=== PATIENT | female | born 1960 | race American Indian/Alaskan Native ===

== ENCOUNTER 2016-03-05 11:11 | Outpatient (CLI) | payer MEDICAID ==
--- NOTE | 2016-03-05 12:00 | Mammography Report ---
BILATERAL MAMMOGRAM: No previous studies available. CAD study utilized. FINDINGS: Predominance of adipose tissue bilaterally. Benign calcifications bilaterally. Focal asymmetry subareolar area right breast. No microcalcification. Benign axillary nodes. Benign intramammary nodes. IMPRESSION: Focal asymmetry subareolar area right breast. Comparison with previous studies is recommended. If previous studies are not available, spot mag and if necessary sonographic examination advised. BI-RADS CATEGORY: 0 = Needs additional imaging evaluation ACR BI-RADS MAMMOGRAPHIC CODES: 0 = Needs additional imaging evaluation; 1 = Negative; 2 = Benign; 3 = Probably benign; 4 = Suspicious; 5 = Malignant; 6 = Known biopsy-proven malignancy COMMENT: 1. Dense breast tissue, i.e., adenosis, fibrocystic changes, etc., may obscure an underlying neoplasm. 2. Approximately 10% of cancers are not detected with mammography. 3. A negative mammography report should not delay biopsy if a clinically suspicious mass is present. COMMENT: Patient follow-up letters are generated in [employer].
== END 2016-03-05 11:12 | disposition home or self-care (01) ==
LOC: MAMMO 11:11
PROVIDERS: ATTEND Nurse Practitioner
DX: Z12.31 Encounter for screening mammogram for malignant neoplasm of breast (principal)
CPT/HCPCS: 77067; G0202

== ENCOUNTER 2016-09-20 20:46 | Emergency (ER) | payer MEDICAID ==
[2016-09-20 21:49] VITALS: BP 122/80
== END 2016-09-21 00:55 | disposition left against medical advice (07) ==
LOC: ED 20:46
DX: J02.9 Acute pharyngitis, unspecified (principal); Z53.21 Procedure and treatment not carried out due to patient leaving prior to being seen by health care provider
CPT/HCPCS: 87116; 87430

== ENCOUNTER 2016-09-21 21:00 | Emergency (ER) | payer MEDICAID ==
--- NOTE | 2016-09-22 04:12 | Emergency Department Report ---
HPI - General Chief Complaint: Sore Throat Time Seen by Provider: 09/22/16 03:45 - HPI HPI: Patient is a 56-year-old female who presents to ED complaining of throat pain 3 days. Patient describes pain as burning in nature, 8 out of 10 intensity, nonradiating, localized to his throat. Admits pain with swallowing and eating. Patient also states that her tongue is itchy and burning. Patient denies nausea/vomiting/abdominal pain/shortness of breath/chest pain/ headache. ED Past Medical Hx - Past Medical History Previous Medical History?: Yes Hx Hypertension: Yes Hx Psychiatric Treatment: Yes (Anxiety) Additional medical history: high cholesterol - Surgical History Past Surgical History?: Yes Additional Surgical History: c section x1 left thumb surgery - Social History Smoking Status: Current Every Day Smoker Substance Use Type: None - Medications Home Medications: Home Medications Medication Instructions Recorded Confirmed Last Taken Type Acetaminophen [Acetaminophen 8 650 mg PO TID #30 tablet.er 09/22/16 Unknown Rx Hour] Cetirizine HCl [ZyrTEC] 10 mg PO DAILY #30 tab.chew 09/22/16 Unknown Rx Famotidine [Pepcid] 20 mg PO BID #30 tablet 09/22/16 Unknown Rx ED Review of Systems ROS: Stated complaint: SORE THROAT Other details as noted in HPI Constitutional: denies: chills, fever Eyes: denies: eye pain, eye discharge, vision change ENT: throat pain. denies: ear pain Respiratory: denies: cough, shortness of breath, wheezing Cardiovascular: denies: chest pain, palpitations Endocrine: no symptoms reported Gastrointestinal: denies: abdominal pain, nausea, diarrhea Genitourinary: denies: urgency, dysuria, discharge Musculoskeletal: denies: back pain, joint swelling, arthralgia Skin: denies: rash, lesions Neurological: denies: headache, weakness, numbness, paresthesias, confusion Psychiatric: denies: anxiety, depression Hematological/Lymphatic: denies: easy bleeding, easy bruising Physical Exam - Physical Exam Vital Signs: Vital Signs 09/21/16 09/21/16 21:13 21:32 Temperature 99.3 F 99.3 F Pulse Rate 92 H 92 H Respiratory 18 18 Rate Blood Pressure 138/85 Blood Pressure 138/85 [Right] O2 Sat by Pulse 98 98 Oximetry Physical Exam: GENERAL: Alert and oriented x3, no apparent distress, Normal Gait, atraumatic. HEAD: Head is normocephalic and a-traumatic. EYES: Extra ocular muscles are intact. Pupils are equal, round, and reactive to light and accommodation. EARS: symetrical, atraumatic, non tender, ear canal clear and moderate cerumen, tympanic membrance non inflamed. gross auditory nml bilaterally. NOSE: Nose symetrical, Nontender,Nares appeared normal. MOUTH:Mouth is well hydrated and without lesions. Tonsils nonerythematous or swollen, Uvula midline, Tongue not elevated. Mucous membranes are moist. Posterior pharynx clear, no exudate or lesions. Patent airways. NECK: Supple. Non edematous, No carotid bruits. mild lymphadenopathy, no thyromegaly. No C-spine tenderness LUNGS: Symetrical with respiration, No wheezing, no rales or crackles, CTAB. HEART: S1, S2 present, regular rate and rhythm without murmur, no rubs, no gallops. Non tender to palpation PSYCHIATRIC: Mood is congruent with affect, denies suicidal or homicidal ideations. SKIN: Warm and dry, No lesions, No ulceration or induration present. ED Course Vital Signs 09/21/16 09/21/16 21:13 21:32 Temperature 99.3 F 99.3 F Pulse Rate 92 H 92 H Respiratory 18 18 Rate Blood Pressure 138/85 Blood Pressure 138/85 [Right] O2 Sat by Pulse 98 98 Oximetry ED Medical Decision Making - Medical Decision Making 56-year-old female presents with pharyngitis. ED course: Rapid strep tests ordered rapid strep test negative Patient received 1 dose of Tylenol, 60mg milligrams of prednisone Fever responsive to one dose of Tylenol. Vital signs stable patient is in no acute or respiratory distress. Discussed findings with patient about the negative strep. pt to be sent home on Motrin. Discussed the patient to follow up with back order clerk due to swollen thyroid gland. Discussed with patient follow-up with primary care physician. Patient verbally states he understands and will comply to follow-up. Critical care attestation.: If time is entered above; I have spent that time in minutes in the direct care of this critically ill patient, excluding procedure time. ED Disposition Clinical Impression: Pharyngitis Qualifiers: Pharyngitis/tonsillitis etiology: unspecified etiology Qualified Code(s): J02.9 - Acute pharyngitis, unspecified Disposition: TO HOME OR SELFCARE Is pt being admited?: No Does the pt Need Aspirin: No Condition: Stable Instructions: Pharyngitis (ED), Thyroid Goiter (ED) Prescriptions: Acetaminophen [Acetaminophen 8 Hour] 650 mg PO TID #30 tablet.er Cetirizine HCl [ZyrTEC] 10 mg PO DAILY #30 tab.chew Famotidine [Pepcid] 20 mg PO BID #30 tablet Referrals: PRIMARY CARE, [Primary Care Provider] - 3-5 Days NATALYA BRYANT FNP [Advanced Practice Nurse] - 3-5 Days LEON PRECIADO MD [Staff Physician] - 3-5 Days ANNALISA GREEN MD [Staff Physician] - 3-5 Days MICHAELA DEGROOT MD [Staff Physician] - 3-5 Days Forms: Accompanied Note, Work/School Release Form(ED) Time of Disposition: 04:30
[2016-09-22] MEDS ORDERED: DELTASONE PO ONE (04:23)
[2016-09-22] MEDS ORDERED: TYLENOL PO ONE (04:26)
[2016-09-22] MEDS: BENADRYL PO ONE ×2 (04:40→04:56)
[2016-09-22 05:04] VITALS: BP 140/78
== END 2016-09-22 05:04 | disposition home or self-care (01) ==
LOC: ED 21:00
DX: J02.9 Acute pharyngitis, unspecified (principal); I10 Essential (primary) hypertension; E78.00 Pure hypercholesterolemia, unspecified; F17.210 Nicotine dependence, cigarettes, uncomplicated
CPT/HCPCS: 87116; 87430; 99282; J7512; Q0163

== ENCOUNTER 2017-03-07 10:59 | Outpatient (CLI) | payer OTHER ==
--- NOTE | 2017-03-07 13:26 | Mammography Report ---
BILATERAL DIGITAL SCREENING MAMMOGRAM with CAD: 03/07/17 10:59:00 CLINICAL: Routine screening. COMPARISON:03/05/16 FINDINGS: The breasts are almost entirely fatty.A few stable right benign intraparenchymal lymph nodes. Bilateral benign calcifications. No mass, architectural distortion or suspicious calcifications. IMPRESSION: No mammographic evidence of malignancy. BI-RADS CATEGORY: 2 - - Benign RECOMMENDATION: Routine mammographic screening in one year. COMMENT: Patient follow-up letters are generated by our [employer] application.
== END 2017-03-07 11:00 | disposition home or self-care (01) ==
LOC: MAMMO 10:59
PROVIDERS: ATTEND Family Medicine
DX: Z12.31 Encounter for screening mammogram for malignant neoplasm of breast (principal)
CPT/HCPCS: 77067

== ENCOUNTER 2018-03-13 12:51 | Outpatient (CLI) | payer MEDICAID ==
--- NOTE | 2018-03-13 13:59 | Mammography Report ---
BILATERAL MAMMOGRAM: FINDINGS: There are scattered fibroglandular densities (approximately 25%-50% glandular). No mass, distortion, suspicious calcification, or skin change is seen. No interval change compared to prior examination in February 2017. CAD was utilized. IMPRESSION: Negative mammogram. There is no mammographic evidence of malignancy. RECOMMENDATION: Follow-up per ACS guidelines. BI-RADS CATEGORY: 1 = Negative ACR BI-RADS MAMMOGRAPHIC CODES: 0 = Needs additional imaging evaluation; 1 = Negative; 2 = Benign; 3 = Probably benign; 4 = Suspicious; 5 = Malignant; 6 = Known biopsy-proven malignancy COMMENT: 1. Dense breast tissue, i.e., adenosis, fibrocystic changes, etc., may obscure an underlying neoplasm. 2. Approximately 10% of cancers are not detected with mammography. 3. A negative mammography report should not delay biopsy if a clinically suspicious mass is present. COMMENT: Patient follow-up letters are generated in [employer].
== END 2018-03-13 12:52 | disposition home or self-care (01) ==
LOC: MAMMO 12:51
PROVIDERS: ATTEND Family Medicine
DX: Z12.31 Encounter for screening mammogram for malignant neoplasm of breast (principal); I10 Essential (primary) hypertension; Z87.891 Personal history of nicotine dependence
CPT/HCPCS: 77067

== ENCOUNTER 2019-12-06 17:27 | Emergency (ER) | payer SELFPAY ==
[2019-12-06 17:34] VITALS: BP 145/83
--- NOTE | 2019-12-06 18:15 | Emergency Department Report ---
ED ENT HPI - General Chief complaint: Dental/Oral Stated complaint: MOUTH PAIN Time Seen by Provider: 12/06/19 18:03 Source: patient Mode of arrival: Ambulatory Limitations: No Limitations - History of Present Illness Initial comments: Patient is a 59-year-old female presents emergency room with complaints of mouth pain that began a week ago. She states that she has white plaques on her tongue. She states that she believes she has oral thrush. She states that she attempted to use home remedies such as baking soda, lemon juice, peroxide, salt water gargles. She denies ever having the past. She denies any tongue or mouth swelling, fever, nausea, vomiting, diarrhea, difficulty swallowing. She has a past medical history of COPD, hypertension, hyperlipidemia. She has an allergy to sulfa. - Related Data Previous Rx's Medication Instructions Recorded Last Taken Type Acetaminophen [Acetaminophen 8 650 mg PO TID #30 tablet.er 09/22/16 Unknown Rx Hour] Cetirizine HCl [ZyrTEC] 10 mg PO DAILY #30 tab.chew 09/22/16 Unknown Rx Famotidine [Pepcid] 20 mg PO BID #30 tablet 09/22/16 Unknown Rx Fluconazole (Nf) [Diflucan TAB] 150 mg PO ONCE 1 Days #1 tablet 12/06/19 Unknown Rx Nystatin [Nystatin SUSP] 10 ml PO TID 10 Days #1 bottle 12/06/19 Unknown Rx Allergies Allergy/AdvReac Type Severity Reaction Status Date / Time Sulfa (Sulfonamide Allergy Nausea Verified 12/06/19 17:28 Antibiotics) ED Dental HPI - General Chief complaint: Dental/Oral Stated complaint: MOUTH PAIN Time Seen by Provider: 12/06/19 18:03 Source: patient Mode of arrival: Ambulatory Limitations: No Limitations - Related Data Previous Rx's Medication Instructions Recorded Last Taken Type Acetaminophen [Acetaminophen 8 650 mg PO TID #30 tablet.er 09/22/16 Unknown Rx Hour] Cetirizine HCl [ZyrTEC] 10 mg PO DAILY #30 tab.chew 09/22/16 Unknown Rx Famotidine [Pepcid] 20 mg PO BID #30 tablet 09/22/16 Unknown Rx Fluconazole (Nf) [Diflucan TAB] 150 mg PO ONCE 1 Days #1 tablet 12/06/19 Unknown Rx Nystatin [Nystatin SUSP] 10 ml PO TID 10 Days #1 bottle 12/06/19 Unknown Rx Allergies Allergy/AdvReac Type Severity Reaction Status Date / Time Sulfa (Sulfonamide Allergy Nausea Verified 12/06/19 17:28 Antibiotics) ED Review of Systems ROS: Stated complaint: MOUTH PAIN Other details as noted in HPI Comment: All other systems reviewed and negative ED Past Medical Hx - Past Medical History Hx Hypertension: Yes Hx Psychiatric Treatment: Yes (Anxiety) Additional medical history: high cholesterol - Surgical History Additional Surgical History: c section x1 left thumb surgery - Social History Smoking Status: Current Every Day Smoker Substance Use Type: None - Medications Home Medications: Home Medications Medication Instructions Recorded Confirmed Last Taken Type Acetaminophen [Acetaminophen 8 650 mg PO TID #30 tablet.er 09/22/16 Unknown Rx Hour] Cetirizine HCl [ZyrTEC] 10 mg PO DAILY #30 tab.chew 09/22/16 Unknown Rx Famotidine [Pepcid] 20 mg PO BID #30 tablet 09/22/16 Unknown Rx Fluconazole (Nf) [Diflucan TAB] 150 mg PO ONCE 1 Days #1 tablet 12/06/19 Unknown Rx Nystatin [Nystatin SUSP] 10 ml PO TID 10 Days #1 bottle 12/06/19 Unknown Rx ED Physical Exam - General Limitations: No Limitations General appearance: alert, in no apparent distress - Head Head exam: Present: atraumatic, normocephalic - Eye Eye exam: Present: normal appearance - ENT ENT exam: Present: mucous membranes moist, other (thich white plaque present to the tongue) - Respiratory Respiratory exam: Present: normal lung sounds bilaterally. Absent: respiratory distress, wheezes, rales, rhonchi, stridor, chest wall tenderness, accessory muscle use, decreased breath sounds, prolonged expiratory - Cardiovascular Cardiovascular Exam: Present: regular rate, normal rhythm, normal heart sounds. Absent: systolic murmur, diastolic murmur, rubs, gallop - Neurological Exam Neurological exam: Present: alert, oriented X3 - Psychiatric Psychiatric exam: Present: normal affect, normal mood - Skin Skin exam: Present: warm, dry, intact ED Course Vital Signs 12/06/19 17:31 Temperature 99.0 F Pulse Rate 93 H Respiratory 18 Rate Blood Pressure 145/83 O2 Sat by Pulse 94 Oximetry ED Medical Decision Making - Medical Decision Making Patient is a 59-year-old female presents emergency room with complaints of mouth pain that began a week ago. She states that she has white plaques on her tongue. She states that she believes she has oral thrush. She states that she attempted to use home remedies such as baking soda, lemon juice, peroxide, salt water gargles. She denies ever having the past. She denies any tongue or mouth swelling, fever, nausea, vomiting, diarrhea, difficulty swallowing. She has a past medical history of COPD, hypertension, hyperlipidemia. She has an allergy to sulfa. VSS. on exam: thich white plaque present to the tongue. Examination could most likely be due to oral candidiasis. Given that patient is a current every day tobacco smoker, discussed the importance of oral cancer screening as an outpatient, she verbalized understanding. Patient given prescription for fluconazole and nystatin. Advised patient Please use medication as prescribed. Please follow-up with your primary care doctor. Please discuss with your primary care doctor about oral cancer screening since you are a tobacco user. Return to emergency room for any new or worsening symptoms. Critical care attestation.: If time is entered above; I have spent that time in minutes in the direct care of this critically ill patient, excluding procedure time. ED Disposition Clinical Impression: Oral candidiasis Disposition: DC-01 TO HOME OR SELFCARE Is pt being admited?: No Does the pt Need Aspirin: No Condition: Stable Instructions: Oral Candidiasis (ED) Additional Instructions: Please use medication as prescribed. Please follow-up with your primary care doctor. Please discuss with your primary care doctor about oral cancer screening since you are a tobacco user. Return to emergency room for any new or worsening symptoms. Prescriptions: Fluconazole (Nf) [Diflucan TAB] 150 mg PO ONCE 1 Days #1 tablet Nystatin [Nystatin SUSP] 10 ml PO TID 10 Days #1 bottle Referrals: your, primary care doctor [Other] - 2-3 Days Time of Disposition: 18:14 Print Language: FRENCH
== END 2019-12-06 18:36 | disposition home or self-care (01) ==
LOC: ED 17:27
DX: B37.0 Candidal stomatitis (principal); I10 Essential (primary) hypertension; F41.9 Anxiety disorder, unspecified; F17.200 Nicotine dependence, unspecified, uncomplicated; Z79.899 Other long term (current) drug therapy; Z88.2 Allergy status to sulfonamides
CPT/HCPCS: 99282

== ENCOUNTER 2019-12-07 13:08 | Outpatient (CLI) | payer OTHER ==
--- NOTE | 2019-12-07 15:25 | Mammography Report ---
DIGITAL SCREENING MAMMOGRAM WITH CAD, 12/07/2019 INDICATION: Routine screening mammography. SCREENING MAMMOGRAM TECHNIQUE: Digital bilateral 2D mammography was obtained in the craniocaudal and mediolateral obliq ue projections. This examination was interpreted with the benefit of Computer-Aided Detection analysi s. COMPARISON: 03/13/2018 FINDINGS: Breast Density: There are scattered areas of fibroglandular density. There is no evidence of dominant mass, suspicious calcifications or architectural distortion in eithe r breast. Benign-appearing bilateral calcifications and mild nodularity are stable. IMPRESSION: No evidence of malignancy Follow up recommendation: Routine yearly BI-RADS Category 2: Benign. A "normal" or negative report should not discourage follow up or biopsy of a clinically significant f inding. A written summary of these findings will be mailed to the patient. The patient will be entered into a mammography reporting system which will generate a reminder letter for the patient's next appointmen t at the appropriate interval. The [employer] recommends yearly mammograms starting at age 40 and continuing as l andrei as a woman is in good health. Breast MRI is recommended for women with an approximate 20-25% or greater lifetime risk of breast cancer, including women with a strong family history of breast or ova neil cancer or who have been treated for Hodgkin's disease. Signer Name: Allen Pekrins MD Signed: 12/07/2019 3:21 PM Workstation Name: [id number]
== END 2019-12-07 13:09 | disposition home or self-care (01) ==
LOC: MAMMO 13:08
PROVIDERS: ATTEND Physician Assistant
DX: Z12.31 Encounter for screening mammogram for malignant neoplasm of breast (principal); N64.89 Other specified disorders of breast
CPT/HCPCS: 77067

== ENCOUNTER 2020-12-08 12:22 | Outpatient (CLI) | payer OTHER ==
--- NOTE | 2020-12-09 17:08 | Mammography Report ---
DIGITAL SCREENING MAMMOGRAM WITH CAD, 12/08/2020 CLINICAL INFORMATION / INDICATION: Routine screening mammography. TECHNIQUE: Digital bilateral 2D mammography was obtained in the craniocaudal and mediolateral obliqu e projections. This examination was interpreted with the benefit of Computer-Aided Detection analysis . COMPARISON: 12/07/2019, 03/13/2018, 03/07/2017 FINDINGS: Breast Density: There are scattered areas of fibroglandular density. No dominant mass, suspicious calcifications, or architectural distortion in either breast. IMPRESSION: No mammographic evidence of malignancy. Follow up recommendation: Routine yearly BI-RADS Category 1: Negative. A "normal" or negative report should not discourage follow up or biopsy of a clinically significant f inding. A written summary of these findings will be mailed to the patient. The patient will be entered into a mammography reporting system which will generate a reminder letter for the patient's next appointmen t at the appropriate interval. The [employer] recommends yearly mammograms starting at age 40 and continuing as l andrei as a woman is in good health. Breast MRI is recommended for women with an approximate 20-25% or greater lifetime risk of breast cancer, including women with a strong family history of breast or ova neil cancer or who have been treated for Hodgkin's disease. Signer Name: Asia Nassar MD Signed: 12/09/2020 5:03 PM Workstation Name: [email or web address]
== END 2020-12-08 12:23 | disposition home or self-care (01) ==
LOC: MAMMO 12:22
PROVIDERS: ATTEND Physician Assistant
DX: Z12.31 Encounter for screening mammogram for malignant neoplasm of breast (principal)
CPT/HCPCS: 77067